=== PATIENT | male | born 1975 | race Caucasian/White ===

== ENCOUNTER 2019-01-25 14:38 | Outpatient (REF) | payer SELFPAY ==
[2019-01-25 20:32] LABS: COMMENT (LAB VIEW ONLY) 147.28 mg/dL; Microalb ug/mg Crea 3.1 ug/mg Cr
== END 2019-01-25 14:58 ==
LOC: NCHCN 14:38
PROVIDERS: PCP Internal Medicine; Visit Provider Physician Assistant
DX: E11.9 Type 2 diabetes mellitus without complications (principal)
CPT/HCPCS: 82043; 82570

== ENCOUNTER 2020-09-23 11:12 | Emergency (ER) | payer SELFPAY ==
[2020-09-23 11:19] VITALS: BP 154/86; PULSE 75; RESP 16; TEMP 37.4; O2SAT 97
--- NOTE | 2020-09-23 11:30 | DI.RAD_ITS ---
Exam(s) XR SHOULDER LT COMPLETE 2+V EXAM: XR SHOULDER LT COMPLETE 2+V CLINICAL HISTORY: Pain, limited Range of motion. TECHNIQUE: 2D digital imaging was performed. COMPARISON: CR LEFT SHOULDER COMPLETE from 08/20/2012 FINDINGS: There is no evidence of acute fracture nor dislocation of the glenohumeral joint. Benign bone island in the osseous glenoid is unchanged from 2013. There is no narrowing of the glenohumeral joint evid ent and no osteophytes. No calcifications in the subacromial space. There are degenerative changes in the acromioclavicular joint which appear to have somewhat progressed from the prior study, present ly including small downgoing osteophytes on both sides of this joint. There also degenerative subart icular cysts in the lateral aspect of the humeral head, more evident than previous. No evidence of H ill-Sachs deformity. No osseous Bankart lesion. No lytic osseous lesions identified. IMPRESSION: DATA REPOSITORY: RADIATION DOSE DELIVERED:
--- NOTE | 2020-09-23 11:32 | ED.GENADUL_ITS ---
Discharge Plan Disposition Patient Disposition: HOME Condition: Stable Discharge Details Clinical Impression: Arthritis of shoulder region, left, degenerative, Sprain of left shoulder Primary Care Provider: Vasquez Aldana ED Provider: Deysi Flynn Home Meds and New Rx's Prescriptions: No Action Olecranon Sleeve Qty: 1 RF: 0 ibuprofen 200 MG capsule 800 mg PO PRN PRNRF: 0 glyburide 5 mg Tablet 10 mg PO DAILY RF: 0 metformin 1,000 mg tablet 1,000 mg PO DAILY RF: 0 lovastatin 20 mg tablet 20 mg PO DAILY RF: 0 Discharge Instructions Instructions: Shoulder Sprain (ED), Arthritis (ED) Additional Instructions: Alternate ice and heat. Try massage and topical antiinflammatories such as Diclofenac topical cream. Please take Tylenol or Ibuprofen with food every 4-6 hours as needed for pain and swelling. Follow up with primary care provider in 3-5 days. Return to ED sooner if any worsening or concerns. Increase oral fluids. Referrals: Vasquez Aldana MD [Primary Care Provider] - Medical Decision Making 45-year-old male presents to the ER with chief complaint of left shoulder pain which began on Wednesday. Patient states that he was wrestling with his son and is unsure of the mechanism of injury. He reports taking Tylenol and ibuprofen at home with little to no relief. He reports increased swelling noted on Wednesday and abduction of the shoulder. No pain with palpation no obvious deformity distal CMS is intact. Full range of motion noted to the elbow. X-ray ordered. Differential diagnosis includes but not limited to fracture, sprain, tendinitis. EXAM: XR SHOULDER LT COMPLETE 2+V CLINICAL HISTORY: Pain, limited Range of motion. TECHNIQUE: 2D digital imaging was performed. COMPARISON: CR LEFT SHOULDER COMPLETE from 08/20/2012 FINDINGS: There is no evidence of acute fracture nor dislocation of the glenohumeral joint. Benign bone island in the osseous glenoid is unchanged from 2013. There is no narrowing of the glenohumeral joint evident and no osteophytes. No calcifications in the subacromial space. There are degenerative changes in the acromioclavicular joint which appear to have somewhat progressed from the prior study, presently including small downgoing osteophytes on both sides of this joint. There also degenerative subarticular cysts in the lateral aspect of the humeral head, more evident than previous. No evidence of Hill-Sachs deformity. No osseous Bankart lesion. No lytic osseous lesions identified. Discussed x-ray results with patient who verbalizes understanding. Discussed home care. This text was generated using [employer] system, please disregard any oddities of phrase or misspellings. HPI General Mode of arrival: ambulatory . Date/Time Provider Initiated Documentation: 09/23/20 11:15 . Limitations to Documentation: no limitations . Information obtained by: patient and RN notes reviewed . HPI Narrative: 45-year-old male presents to the ER with chief complaint of left shoulder pain which began on Wednesday. Patient states that he was wrestling with his son and is unsure of the mechanism of injury. He reports taking Tylenol and ibuprofen at home with little to no relief. He reports increased swelling noted on Wednesday and abduction of the shoulder. No pain with palpation no obvious deformity distal CMS is intact. Full range of motion noted to the elbow. Related Data Home Medications Medication Instructions Recorded Confirmed ibuprofen 800 mg PO PRN PRN 08/20/12 09/23/20 glyburide 10 mg PO DAILY 09/23/20 09/23/20 lovastatin 20 mg PO DAILY 09/23/20 09/23/20 metformin 1,000 mg PO DAILY 09/23/20 09/23/20 Allergies Allergy/AdvReac Type Severity Reaction Status Date / Time Penicillins AdvReac Severe Anaphylaxsi Unverified 09/23/20 11:22 s General Stated Complaint: Orthopedic DIAZ: 3 Review of Systems All systems reviewed & are unremarkable except as noted in HPI and below Musculoskeletal Musculoskeletal: Denies back pain, Denies deformity, Reports arthralgias (Left shoulder), Reports joint swelling, Reports limited range of motion and Denies numbness Neurologic Neurologic: Denies numbness [facility] Social History Smoking/Tobacco Use Status: Current every day Tobacco Type: cigarettes Smoking risk assessment performed?: Yes Alcohol Intake: current Alcohol Intake frequency: a few times a week Alcohol type: beer Drug use: Daily Substance use type: marijuana Do you feel safe at home: Yes Do you feel safe in your relationship?: Yes Exam Narrative Exam Narrative: Constitutional: Alert and oriented x3. Appears stated age. Normal body habitus. Head: Normocephalic, no trauma. Chest: RRR, Normal S1, S2, distal pulses intact. Resp: Lungs clear to auscultation bilaterally, no wheezes, rales, or rhonchi. Musculoskeletal: Normal gait, 5/5 strength to all four extremities. Decreased abduction of left shoulder. No obvious deformity, no pinpoint tenderness with palpation. Full range of motion noted to elbow distal CMS intact. Skin: No suspicious rashes or lesions. Capillary refill less than 2 sec. Course Vital Signs Vital signs: Vital Signs Temperature 37.4 C 09/23/20 11:19 Pulse 75 09/23/20 11:19 Respiratory Rate 16 09/23/20 11:19 Blood Pressure 154/86 H 09/23/20 11:19 Pulse Oximetry 97 09/23/20 11:19 Temperature 37.4 C 09/23/20 11:19 Temperature Source Oral 09/23/20 11:19 Pulse 75 09/23/20 11:19 Respiratory Rate 16 09/23/20 11:19 Respiratory Effort Non-Labored 09/23/20 11:24 Blood Pressure 154/86 H 09/23/20 11:19 Blood Pressure Position Sitting 09/23/20 11:19 Pulse Oximetry 97 09/23/20 11:19 Oxygen Delivery Method Room Air 09/23/20 11:19 Oxygen Flow Rate 0 09/23/20 11:19 Pain Level 10 09/23/20 11:24
== END 2020-09-23 12:40 | disposition home or self-care (01) ==
PROVIDERS: Emergency Provider Registered Nurse Emergency; PCP Internal Medicine
DX: S43.492A Other sprain of left shoulder joint, initial encounter (principal); M19.012 Primary osteoarthritis, left shoulder; X50.9XXA Other and unspecified overexertion or strenuous movements or postures, initial encounter; Y93.83 Activity, rough housing and horseplay
CPT/HCPCS: 99283; 73030

== ENCOUNTER 2020-11-10 10:33 | Emergency (ER) | payer SELFPAY ==
--- NOTE | 2020-11-10 11:00 | DI.CT_ITS ---
Exam(s) CT ABDOMEN PELVIS W EXAM: CT ABDOMEN PELVIS W CLINICAL HISTORY: right flank pain TECHNIQUE: Imaging Protocol: Axial computed tomography images with coronal and sagittal reformatted images were created and reviewed CONTRAST MATERIAL: Intravenous: Omnipaque 350 Contrast volume:100 mL Oral: No COMPARISON: No exams were available for comparison FINDINGS: ABDOMEN: Lung Bases: Normal where visualized. Liver: Normal density. No measurable mass. Portal, Superior Mesenteric, and Splenic Veins: Unremarkable. Gallbladder and Biliary Tract: No radiodense calculus or dilation. Pancreas: Normal density, no abnormal calcifications or inflammatory process. Spleen: Normal. Adrenals: No masses seen. Kidneys: Normal size, contour and axis. No radiodense stones or obstructive uropathy. No masses seen. Abdominal Aorta: Abdominal portion non-dilated. Atherosclerosis. Bowel: No obstruction or bowel wall thickening. Appendix is unremarkable. Peritoneal Cavity: No ascites, collection or mesenteric inflammatory response. No free air. Lymph Nodes: Within normal limits. Bones: Within normal limits for the patient's age. 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 Soft Tissues: Unremarkable. PELVIS: Bladder: The urinary bladder is incompletely distended. No gross abnormality is identified. Reproductive Organs: Unremarkable as visualized. Lymph Nodes: Within normal limits. Bones: Within normal limits for the patient's age. IMPRESSION: No acute abdominal or pelvic process. RADIATION DOSE DELIVERED: 1,134.21mGy.cm Total DLP DATA REPOSITORY: All CT scans at this facility are submitted to the National Radiology Data Registry (NRDR) Dose Index Registry (DIR) with the [employer] (ACR). RADIATION OPTIMIZATION: All CT scans at this facility use at least one of these dose optimization te chniques: automated exposure control; mA and/or kV adjustment per patient size (includes targeted exa ms where dose is matched to clinical indication); or iterative reconstruction.
[2020-11-10 11:01] VITALS: BP 140/86; PULSE 66; RESP 16; TEMP 36.2; O2SAT 97
--- NOTE | 2020-11-10 11:02 | DI.RAD_ITS ---
Exam(s) XR CHEST 2V PA LATERAL EXAM: XR CHEST 2V PA LATERAL CLINICAL HISTORY: wheezing, r flank pain TECHNIQUE: 2D digital imaging was performed of the chest. Two images were obtained. PA and lateral views were obtained. COMPARISON: No exams were available for comparison FINDINGS: MEDIASTINUM: Normal. HEART: Normal. PULMONARY VASCULATURE: Normal. LUNGS: Clear. PLEURAL SPACE: No pleural effusion or pneumothorax. BONE:Within normal limits for the patient's age. OTHER FINDINGS:Normal. IMPRESSION: No acute pulmonary findings. DATA REPOSITORY: RADIATION DOSE DELIVERED:
[2020-11-10 11:27] LABS: Abs Immature Grans 0.03 10^3/uL (0.0-0.06); Absolute Basophil Count 0.02 10^3/uL (0.0-0.2); Absolute Eosinophil Count 0.06 10^3/uL (0.0-0.7); Absolute Lymphocyte Count 2.13 10^3/uL (1.2-3.4); Absolute Monocyte Count 0.58 10^3/uL (0.1-0.8); Absolute Neutrophil Count 6.44 10^3/uL (1.2-6.7); Basophils % 0.2; Eosinophils % 0.6; HCT 45.3 % (40.0-50.0); HGB 15.2 g/dL (13.5-17.5); Immature Grans % 0.3; MCH 30.2 pg (27.0-33.0); MCHC 33.6 % (32.0-36.0); MCV 89.9 fL (80-95); MPV 9.1 fL (8.0-11.0); Monocytes % 6.3; Neutrophils % 69.6; Nucleated RBC 0 %; Platelet Count 243 10^3/uL (130-400); RBC 5.04 10^6/uL (4.36-5.78); RDW 12.5 % (11.8-14.1); RDW-SD 41.4 fL; WBC 9.26 10^3/uL (4.4-10.8)
[2020-11-10 11:40] LABS: ALT 38 U/L (16-63); AST 15 U/L (15-37); Albumin 4.4 g/dL (3.4-5.0); Alkaline Phosphatase 50 U/L (46-116); BUN 15 mg/dL (7-18); Bilirubin, Total 0.7 mg/dL (0.2-1.0); CREATININE 1.1 mg/dL (0.70-1.30); Calcium 9.2 mg/dL (8.5-10.1); Chloride 102 mmol/L (98-107); Glucose 202 mg/dL (74-106); Lipase 67 U/L (73-393); Potassium 4.6 mmol/L (3.5-5.1); Sodium 136 mmol/L (136-145); Total Protein 7.7 g/dL (6.4-8.2)
[2020-11-10 11:47] VITALS: RESP 18
[2020-11-10] MEDS: Omnipaque 350 MG/ML 100 ML BTL IV (12:43)
[2020-11-10] MEDS: Normal Saline Flush 10 ML SYR IVP (12:44)
[2020-11-10] MEDS: Normal Saline - Diluent 50 ML VIAL IV (12:44)
--- NOTE | 2020-11-10 12:57 | ED.GENADUL_ITS ---
Discharge Plan Disposition Patient Disposition: HOME Condition: Stable Discharge Details Clinical Impression: Back pain Primary Care Provider: Norah Perez ED Provider: Ariane Pritchett Home Meds and New Rx's Prescriptions: New orphenadrine citrate 100 mg tablet extended release 100 mg PO BID Qty: 10 RF: 0 Continued ibuprofen 200 MG capsule 800 mg PO PRN PRNRF: 0 glyburide 5 mg Tablet 10 mg PO DAILY RF: 0 metformin 1,000 mg tablet 1,000 mg PO DAILY RF: 0 lovastatin 20 mg tablet 20 mg PO DAILY RF: 0 Discharge Instructions Instructions: Back Pain (ED) Additional Instructions: No lifting greater than 5 pounds, light stretching recommended Ibuprofen 600 mg every diverticular Tylenol 650 mg every 4 hours Take a muscle relaxant but do not drive for 8 hours after taking this medication You may continue with warm compresses, what ever feels better 2 hours after application Follow-up with primary care physician, you may need physical therapy should you have persistent symptoms Referrals: Norah Perez [Primary Care Provider] - Medical Decision Making CT scan does not show evidence of acute abnormality, diagnostic blood work aside from mild hyperglycemia, 230 does not show acute abnormality Patient resting comfortably in room, discharged home on Norflex for muscle relaxation Given low threshold to return with new or worsening complaints Clinically low suspicion for infectious etiology of patient's complaint No evidence of diabetic ketoacidosis Recheck in 24 to 48 hours recommended Ibuprofen and Tylenol for pain control recommended Suspect musculoskeletal back pain given negative CT imaging Medical Records Medical records reviewed: Yes I reviewed the patient's medical records. Lab Data Lab results reviewed: Yes I reviewed the patient's lab results. HPI General Mode of arrival: ambulatory . Date/Time Provider Initiated Documentation: 11/10/20 11:00 . Limitations to Documentation: no limitations . Information obtained by: patient . HPI Narrative: This 45-year-old gentleman presents with right flank pain for the past 2 days. Denies history of similar. Denies any exacerbating factors. States that ibuprofen mildly improved with pain Denies any trauma. Denies any strength or sensation changes to extremities. States his blood sugars have been within normal limits. Is a noninsulin- dependent diabetic. Denies any hematuria or dysuria. Denies any changes in urination. Denies any change in stool. Denies any chest pain or shortness of breath although does report a cold few weeks ago. Does smoke tobacco. Denies known asthma or COPD history. Denies known exposure to sick contacts. Denies history of IV drug abuse, paresthesias thickening, changes in bowel or bladder, denies fever or chills. Related Data Home Medications Medication Instructions Recorded Confirmed ibuprofen 800 mg PO PRN PRN 08/20/12 11/10/20 glyburide 10 mg PO DAILY 09/23/20 11/10/20 lovastatin 20 mg PO DAILY 09/23/20 11/10/20 metformin 1,000 mg PO DAILY 09/23/20 11/10/20 orphenadrine citrate 100 mg PO BID #10 tab 11/10/20 Previous Rx's Medication Instructions Recorded orphenadrine citrate 100 mg PO BID #10 tab 11/10/20 Allergies Allergy/AdvReac Type Severity Reaction Status Date / Time Penicillins AdvReac Severe Anaphylaxsi Unverified 11/10/20 11:04 s General Stated Complaint: GenMedical DIAZ: 3 Review of Systems All systems reviewed & are unremarkable except as noted in HPI and below PFSH Social History Smoking/Tobacco Use Status: Current every day Tobacco Type: cigarettes Smoking risk assessment performed?: Yes Alcohol Intake: current Alcohol Intake frequency: a few times a week Alcohol type: beer Drug use: Daily Substance use type: marijuana Do you feel safe at home: Yes Do you feel safe in your relationship?: Yes Exam Const General: cooperative, comfortable and no acute distress Orientation: alert and oriented x3 Eyes Pupils: PERRL Resp Effort & Inspection: normal respiratory effort Auscultation: clear to auscultation bilaterally Cardio Rate: regular rate Rhythm: regular rhythm GI Other: No abdominal bruit or pulsatile mass, right flank tenderness, paraspinal tenderness negative straight leg raise Back/Spine/Pelvis Back/spine/pelvis image: 1. Tenderness with palpation, no rashes or lesions Skin General skin exam: no rashes or lesions noted Neuro General: patient alert and patient oriented x3 Other: DTRs intact bilateral upper and lower extremities, strength intact bilateral extremities, ambulatory with steady gait Extrem Other: Distal pulses intact Course Vital Signs Vital signs: Vital Signs Temperature 36.2 C L 11/10/20 11:01 Pulse 66 11/10/20 11:01 Respiratory Rate 16 11/10/20 11:01 Blood Pressure 140/86 11/10/20 11:01 Pulse Oximetry 97 11/10/20 11:01 Temperature 36.2 C L 11/10/20 11:01 Temperature Source Skin 11/10/20 11:01 Pulse 66 11/10/20 11:01 Respiratory Rate 18 11/10/20 11:47 Respiratory Effort Non-Labored 11/10/20 11:47 Respiratory Depth Normal 11/10/20 11:47 Respiratory Pattern Normal 11/10/20 11:47 Blood Pressure 140/86 11/10/20 11:01 Blood Pressure Position Sitting 11/10/20 11:01 Pulse Oximetry 97 11/10/20 11:01 Oxygen Delivery Method Room Air 11/10/20 11:01 Oxygen Flow Rate 0 11/10/20 11:01 Pain Level 8 11/10/20 11:48 Lab/Test Results Lab/Test Results: Laboratory Tests Range/Units 11/10/20 11/10/20 11:19 11:19 WBC (4.4-10.8) 10^3/uL 9.26 RBC (4.36-5.78) 10^6/uL 5.04 Hgb (13.5-17.5) g/dL 15.2 Hct (40.0-50.0) % 45.3 MCV (80-95) fL 89.9 MCH (27.0-33.0) pg 30.2 MCHC (32.0-36.0) % 33.6 RDW (11.8-14.1) % 12.5 Plt Count (130-400) 10^3/uL 243 MPV (8.0-11.0) fL 9.1 Immature Gran % 0.3 Neutrophils % 69.6 Lymphocytes % 23.0 Monocytes % 6.3 Eosinophils % 0.6 Basophils % 0.2 Nucleated RBC % % 0 Absolute Neutrophils (1.2-6.7) 10^3/uL 6.44 Absolute Lymphocytes (1.2-3.4) 10^3/uL 2.13 Absolute Monocytes (0.1-0.8) 10^3/uL 0.58 Absolute Eosinophils (0.0-0.7) 10^3/uL 0.06 Absolute Basophils (0.0-0.2) 10^3/uL 0.02 Sodium (136-145) mmol/L 136 Potassium (3.5-5.1) mmol/L 4.6 Chloride (98-107) mmol/L 102 Carbon Dioxide (21.0-32.0) mmol/L 27.0 Anion Gap (3-11) mmol/L 7.0 BUN (7-18) mg/dL 15 Creatinine (0.70-1.30) mg/dL 1.1 Estimated GFR/1.73 m2 (mL/min/1.73m2) >= 60.00 Glucose (74-106) mg/dL 202 H Calcium (8.5-10.1) mg/dL 9.2 Total Bilirubin (0.2-1.0) mg/dL 0.7 AST (15-37) U/L 15 ALT (16-63) U/L 38 Alkaline Phosphatase (46-116) U/L 50 Total Protein (6.4-8.2) g/dL 7.7 Albumin (3.4-5.0) g/dL 4.4 Lipase (73-393) U/L 67 PAWSS Have you Been Recently Intoxicated or Drunk Within the Last 30 days?: Yes Have you Ever Experienced Previous Episodes of Alcohol Withdrawal?: No Have you ever Experienced Withdrawal Seizures?: No Have you ever Experienced Delirium Tremens(DT)s?: No Have you ever undergone Alcohol Rehabilitation Treatment (i.e, inpt ot outpatient treatment programs)?: No Have you ever Experienced Blackouts?: No Have you ever Combined Alcohol with other Downers within the last 90 days?: No Have you ever Combined Alcohol with any other Substance of Abuse during the last 90 days?: No Positive Blood Alcohol level on Presentation? [PCS.BAL]: No Evidence of Increased Autonomic Activity (i.e. HR>120, tremor, sweating, agitation, nausea)?: No Result: 1
--- NOTE | 2020-11-10 13:04 | DI.VRAD_ITS ---
PROCEDURE INFORMATION: Exam: CT Abdomen And Pelvis With Contrast Exam date and time: 11/10/2020 11:04 AM Age: 45 years old Clinical indication: Other: Right flank pain TECHNIQUE: Imaging protocol: Computed tomography of the abdomen and pelvis with contrast. Contrast material: OMNIPAQUE 350; Contrast volume: 100 ml; Contrast route: INTRAVENOUS (IV); COMPARISON: US SCROTUM AND CONTENTS 26/05/2018 10:03 FINDINGS: A in Lungs: Visualized lung bases are clear. Liver: Normal. No mass or intrahepatic biliary ductal dilatation. Gallbladder and bile ducts: Normal. No calcified stones. No ductal dilation. Pancreas: Normal. No mass or ductal dilation. Spleen: Normal. No splenomegaly. Adrenal glands: Normal. No mass. Kidneys and ureters: Normal. No hydronephrosis, calculus, cyst or mass. Stomach and bowel: Unremarkable. No significant dilatation or obstruction. No mucosal thickening or visible mass. Appendix: No evidence of appendicitis. Intraperitoneal space: Unremarkable. No free air. No significant fluid collection. Vasculature: Unremarkable. No abdominal aortic aneurysm or significant atherosclerosis. Lymph nodes: No enlarged retroperitoneal or mesenteric lymph nodes. Urinary bladder: No mass or wall thickening. Reproductive: Unremarkable as visualized. Bones/joints: Unremarkable. No acute fracture. No lytic lesion. Soft tissues: Unremarkable. IMPRESSION: No acute abnomality in the abdomen or pelvis. Dictated and Authenticated by: Albino Fernando MD. Ordering:RENU Thakkar MD
--- NOTE | 2020-11-10 13:05 | DI.VRAD_ITS ---
PROCEDURE INFORMATION: Exam: XR Chest Exam date and time: 11/10/2020 12:11 PM Age: 45 years old Clinical indication: Other: RT flank pain; Additional info: Wheezing, R flank pain TECHNIQUE: Imaging protocol: XR of the chest. Views: 2 views. COMPARISON: CT ABDOMEN PELVIS W 04/17/2020 12:27 FINDINGS: Scan quality: Exam is technically satisfactory. Lungs: Lungs are clear with no infiltrate or nodule. Pleural spaces: Unremarkable. No pleural effusion. No pneumothorax. Heart/Mediastinum: Cardiomediastinal silhouette is normal. Vasculature: Pulmonary vessels are non-engorged. Bones/joints: Unremarkable. IMPRESSION: No active cardiopulmonary disease. Dictated and Authenticated by: Albino Fernando MD. Ordering:RENU Thakkar MD
[2020-11-10 13:56] VITALS: BP 149/94; PULSE 62; RESP 18; TEMP 36.6; O2SAT 97
[2020-11-10 14:03] LABS: Bilirubin Negative (Negative); Blood Negative (Negative); Clarity Clear (Clear); Glucose 250 mg/dL (Negative); Ketones Negative (Negative); Leukocyte Esterase Negative (Negative); Nitrite Negative (Negative); Urobilinogen 0.2 EU/dL (Up TO 0.2); pH 5.5 (5-8)
== END 2020-11-10 13:56 | disposition home or self-care (01) ==
PROVIDERS: Emergency Provider Physician Assistant; PCP Physician Assistant
DX: M54.50 Low back pain, unspecified (principal)
CPT/HCPCS: 36415; 80053; 83690; 99285; 71046; 74177; 81003; 85025; 99284; J3490

== ENCOUNTER 2022-12-03 21:28 | Outpatient (REF) | payer OTHER, SELFPAY ==
[2022-12-03 20:41] LABS: ALT 30 U/L (16-63); AST 17 U/L (15-37); Albumin 4.5 g/dL (3.4-5.0); Alkaline Phosphatase 48 U/L (46-116); Bilirubin, Total 0.7 mg/dL (0.2-1.0); Calculated LDL 89 mg/dL (<100); Cholesterol 182 mg/dL (<200); HDL Cholesterol 78 mg/dL (40-60); Total Protein 7.4 g/dL (6.4-8.2); Triglyceride 79 mg/dL (<150)
[2022-12-03 20:50] LABS: Bilirubin, Direct 0.1 mg/dL (0.0-0.2)
--- OUTSIDE RECORDS SUMMARY | 2022-12-03 21:32 | XMS_ITS | Continuity of Care Document ---
Author Name Unknown Organization [facility] Address [address] [place] [address] Care Team Providers [employer] Supervisor Name Role Phone Norah Perez Primary Care Physician [phone] Encounter [facility] Date(s): 09/05/22 - 09/05/22 [facility] [address] [place] [address] Discharge Disposition: Home or Self Care Attending Physician: Teresa Quinones [employer]ICULTURAL SCIENCES PROFESSOR Admitting Physician: Teresa Quinones NP Referring Physician: Teresa Quinones AGRICULTURAL SCIENCES PROFESSOR Results Laboratory List Name Date Renal Function Panel 09/05/22 Most recent to oldest [Reference Range]: 1 BUN [7-18 mg/dL] 13 mg/dL (09/05/22 10:08 AM) Glucose Level [74-106 mg/dL] 225 mg/dL *HI* (09/05/22 10:08 AM) Potassium Level [3.5-5.1 mmol/L] 4.0 mmo l/L (09/05/22 10:08 AM) Sodium Level [136-145 mmol/L] 134 mmol/L 1 *LOW* (09/05/22 10:08 AM) Calcium Level [8.5-10.1 mg/dL] 8.8 mg/dL (09/05/22 10:08 AM) Phosphorus Level [2.6-4.7 mg/dL] 2.8 mg/ dL (09/05/22 10:08 AM) Albumin Level [3.4-5.0 g/dL] 3.9 g/dL (09/05/22 10:08 AM) CO2 [21-32 mmol/L] 27 mmol/L (09/05/22 10:08 AM) eGFR Non-AA [>=60] 98 (09/05/22 10:08 AM) eGFR AA [>=60] 98 (09/05/22 10:08 AM) Chloride Level [98-107 mmol/L] 101 mmol/ L (09/05/22 10:08 AM) Creatinine Level [0.70-1.30 mg/dL] 0.96 mg/dL (09/05/22 10:08 AM) 1Result Comment: Repeated to confirm Patient Care team information Care Team Personnel Name: Norah Perez PA-C Position: PowerChart View Only Member Role: Informed Provider Address: Address: [facility] [address], [place] [address] Care Team Related Persons Name: JIMENA YANES
== END 2022-12-03 21:29 | disposition home or self-care (01) ==
LOC: NCHCN 21:28
PROVIDERS: PCP Physician Assistant; Visit Provider Physician Assistant
DX: E11.9 Type 2 diabetes mellitus without complications (principal); E78.5 Hyperlipidemia, unspecified
CPT/HCPCS: 80061; 80076

== ENCOUNTER 2022-12-16 12:51 | Emergency (ER) | payer OTHER, SELFPAY ==
--- NOTE | 2022-12-16 13:00 | DI.CT_ITS ---
Exam(s) CT HEAD WO EXAM: CT HEAD WO CLINICAL HISTORY: headache, blurred vision. TECHNIQUE: Imaging Protocol: Axial computed tomography images with coronal and sagittal reformatted images were created and reviewed COMPARISON: No exams were available for comparison FINDINGS: Ventricles and Extra axial spaces: Normal in size and morphology for the patient's age. Hemorrhage: None. Cerebral parenchyma: Normal. Midline shift: None. Brainstem/Cerebellum: Normal. Pituitary gland is grossly unremarkable. Calvarium: Normal. Visualized Paranasal sinuses/Mastoids: Clear. Soft Tissues: Unremarkable. IMPRESSION: 1. No acute intracranial process. 2. Findings were discussed with the emergency department at 2:37 p.m. on 12/16/2022. RADIATION DOSE DELIVERED: Total DLP DATA REPOSITORY: All CT scans at this facility are submitted to the National Radiology Data Registry (NRDR) Dose Index Registry (DIR) with the [employer] (ACR). RADIATION OPTIMIZATION: All CT scans at this facility use at least one of these dose optimization te chniques: automated exposure control; mA and/or kV adjustment per patient size (includes targeted exa ms where dose is matched to clinical indication); or iterative reconstruction.
[2022-12-16 13:01] VITALS: BP 151/106; PULSE 64; RESP 18; TEMP 37.1; O2SAT 99
--- NOTE | 2022-12-16 13:03 | ED.GENADUL_ITS ---
Discharge Plan Disposition Patient Disposition: Home Condition: Stable Discharge Details Clinical Impression: Headache Primary Care Provider: Norah Perez ED Provider: Joe Madera Home Meds and New Rx's Prescriptions: Continued ibuprofen 200 MG capsule 800 mg PO PRN PRN metformin 1,000 mg tablet 1,000 mg PO DAILY Patient Comments: TAKE 1 TABLET BY MOUTH TWICE DAILY orphenadrine citrate 100 mg tablet extended release 100 mg PO BID Qty: 10 0RF glipizide 5 mg tablet extended release 24hr 5 mg PO ONCE Patient Comments: TAKE ONE TABLET BY MOUTH EVERY DAY atorvastatin 20 mg tablet 20 mg PO ONCE Patient Comments: TAKE ONE TABLET BY MOUTH IN THE EVENING omeprazole 20 mg capsule,delayed release(DR/EC) 20 mg PO ONCE Patient Comments: TAKE ONE CAPSULE BY MOUTH EVERY MORNING ON AN EMPTY STOMACH, TAKE 30 MINUTES BEFORE EATING Discharge Instructions Instructions: DASH Eating Plan (ED), Hypertension (ED), General Headache (ED), Chronic Post Traumatic Headache (ED) Additional Instructions: You were seen in the emergency department for your continued headache after a concussive like injury [address] of your head shows no intracranial bleeding or other abnormality, your labs show no signs of endorgan damage from your hypertension. Prior to starting medicine for hypertension you should try lifestyle changes like the Dash eating plan in the provided patient education materials. Talk with your regular doctor about hypertension as a possible cause for your mild blurred vision. Your neuro exam was normal today. When you have a headache please take 1000 mg of Tylenol, 400 mg of ibuprofen, drink lots of water, talk with your primary care provider about seeing a neurologist for continued headache postconcussion or starting prescribed migraine medications. Please return to the emergency department for any coordination difficulty, significant worsening visual changes or severe sudden onset headaches are completely uncontrolled high blood pressure. Referrals: Norah Perez [Primary Care Provider] - Medical Decision Making This dictation utilizes [id number] dictation software and may contain unedited grammatical errors. 47 y/o M presents to ED today with a chief complaint of nearly two months of headache around an area on the crown of his head that he bumped in a metal gurder in mid-October. States having floaters and blurred vision, noted hypertension in triage- does not take any HTN medications. Onset and characteristics include 2 months of intermittent headaches, seems to be worsening. Patient has relevant history of t2DM. Family and social history: noncontributory. Pertinent exam findings / vital signs include normal neuro exam without cerebellar signs, vision grossly normal, no visual field deficits, benign cardio pulmonary status. Differential / pathologies of concern include uncontrolled HTN, stable ICH (time/duration 2 months), post-concussive syndrome, migraine syndrome. Diagnostic studies of: -BMP, UA, CBC, CT Head w/o Contrast. -renal function WNL -UA no proteinuria -CBC benign -CT head negative for ICH Interventions of: -headache medicines, IVF. ED Course: Counseled the patient on possible postconcussive syndrome as well as possibility of mild symptoms from hypertension, recommend PCP follow-up, counseled on negative head CT and no signs of endorgan damage from hypertension. Counseled t he patient on adequate treatment of migraine syndrome at home.. Findings not consistent with ICH, Hypertensive Urgency/Emergency, Neuro Deficit- likely post-concussive syndrome vs migraine syndrome. Disposition of Headache. Assessment/Plan: Counseled the patient on possible migraine syndrome and treating with medications like Tylenol and ibuprofen and aggressive hydration, counseled him on talking to his primary care provider about his hypertension and starting a medicine like lisinopril if he is having consistently high readings and cutting his salt intake prior to starting Rx's. Counseled on low risk for intracranial bleeding 2 months after a minor concussive injury. Patient verbalized understanding of the plan and return to ED criteria and engaged in shared decision making. Medical Records Medical records reviewed: Yes I reviewed the patient's medical records. Imaging Data Radiologic Study: Imaging: CT Scan Radiologist's impression: EXAM: CT HEAD WO CLINICAL HISTORY: headache, blurred vision. TECHNIQUE: Imaging Protocol: Axial computed tomography images with coronal and sagittal reformatted images were created and reviewed COMPARISON: No exams were available for comparison FINDINGS: Ventricles and Extra axial spaces: Normal in size and morphology for the patient's age. Hemorrhage: None. Cerebral parenchyma: Normal. Midline shift: None. Brainstem/Cerebellum: Normal. Pituitary gland is grossly unremarkable. Calvarium: Normal. Visualized Paranasal sinuses/Mastoids: Clear. Soft Tissues: Unremarkable. IMPRESSION: 1. No acute intracranial process. 2. Findings were discussed with the emergency department at 2:37 p.m. on 12/16/2022. Lab Data Lab results reviewed: Yes I reviewed the patient's lab results. HPI General Date/Time Provider Initiated Documentation: 12/16/22 12:56 . HPI Narrative: 47 year-old male presents to ED today by POV/ambulating with a chief complaint of continued headache, floaters, blurred vision after a minor head injury bumping the crown of his head on a metal gurder with onset 10/21/22, had been seen by his PCP with normal neuro exam- did not get imaging done at incident time. Quality described as persistent headache pain not unilateral but around where he struck his head, no radiation to blindness, numbness/tingling, hemispheric weakness, slurred speech, coordination difficulty. Severity is described as moderate. Palliating factors include nothing specific attempted. Provoking factors include nothing specific. Events leading up to the incident/Associated Symptoms: Patient denies LOC at time of injury. Patient is hypertensive in triage 150/106. Patient not anticoagulated. Related Data Home Medications Medication Instructions Recorded Confirmed ibuprofen 200 mg capsule 800 mg PO PRN PRN 08/20/12 12/16/22 metformin 1,000 mg tablet 1,000 mg PO DAILY 09/23/20 12/16/22 orphenadrine citrate 100 mg 100 mg PO BID #10 tabs 11/10/20 12/16/22 tablet,extended release atorvastatin 20 mg tablet 20 mg PO ONCE 12/16/22 12/16/22 glipizide 5 mg tablet, extended 5 mg PO ONCE 12/16/22 12/16/22 release 24 hr omeprazole 20 mg capsule,delayed 20 mg PO ONCE 12/16/22 12/16/22 release Previous Rx's Medication Instructions Recorded orphenadrine citrate 100 mg 100 mg PO BID #10 tabs 11/10/20 tablet,extended release Allergies Allergy/AdvReac Type Severity Reaction Status Date / Time Penicillins AdvReac Severe Anaphylaxsi Unverified 12/16/22 13:09 s General DIAZ: 3 Review of Systems All systems reviewed & are unremarkable except as noted in HPI and below PFSH All Active Problems (Updated 12/16/22 @ 14:43 by FELTON Keyes) Headache (Acute) Back pain (Acute) Sprain of left shoulder (Acute) Arthritis of shoulder region, left, degenerative (Acute) Social History Smoking/Tobacco Use Status: Current every day Tobacco Type: cigarettes Smoking risk assessment performed?: Yes Alcohol Intake: current Alcohol Intake frequency: a few times a week Alcohol type: beer Drug use: Daily Substance use type: marijuana Do you feel safe at home: Yes Do you feel safe in your relationship?: Yes Exam Narrative Exam Narrative: GENERAL APPEARANCE: Well-nourished, non-toxic, awake and alert, atraumatic, no acute distress. SKIN: Warm, pink, dry, intact, without rashes/lesions/ulcerations. HEAD: Normocephalic, atraumatic, normal hair distribution for gender/age. EYES: Pupils PERRLA, EOMs intact without nystagmus, normal conjunctiva, no exudates on lids/lashes, vision grossly normal, visual hamm intact, test of skew negative ENT: Nares patent, no circumoral cyanosis, no facial swelling NECK: Supple, trachea midline, painless cervical ROM. LUNGS/CHEST: Non-labored respirations, normal A/P diameter, symmetrical expansion, no chest wall deformity HEART (CV/PV): Regular rate, R radial pulse 2+, no peripheral edema, no JVD. ABDOMEN: Soft, non-distended, no guarding. MSK: Normal ROM, no swelling/deformity to bilateral UEs or LEs, moving all extremities without weakness, no cyanosis, spine midline without tenderness, normal curvature. NEURO: Mental Status AAOx4 - alert to person, place, time, events No facial droop, no forehead involvement, no dysmetria with cerebellar testing in [id number], heel-huber, repetitive motion Motor: No focal weakness - strength 5/5 in bilateral UEs and LEs, proximal and distal, symmetric. Sensory: sensation intact to light touch globally. Gait normal: patient ambulated without ataxia into ED room, Romberg absent. PSYCH: euthymic, cooperative, pleasant, appropriate speech
[2022-12-16] MEDS: Normal Saline 1,000 ML 1000 ML IV (13:24)
[2022-12-16 13:28] LABS: Abs Immature Grans 0.03 10^3/uL (0.0-0.06); Absolute Basophil Count 0.03 10^3/uL (0.0-0.2); Absolute Eosinophil Count 0.06 10^3/uL (0.0-0.7); Absolute Lymphocyte Count 2.55 10^3/uL (1.2-3.4); Absolute Monocyte Count 0.65 10^3/uL (0.1-0.8); Absolute Neutrophil Count 5.72 10^3/uL (1.2-6.7); Basophils % 0.3; Eosinophils % 0.7; HGB 14.6 g/dL (13.5-17.5); Immature Grans % 0.3; Lymphocytes % 28.2; MCH 29.7 pg (27.0-33.0); MCHC 33.2 % (32.0-36.0); MCV 89 fL (80-95); Monocytes % 7.2; Neutrophils % 63.3; Platelet Count 238 10^3/uL (130-400); RBC 4.92 10^6/uL (4.36-5.78); RDW 12.7 % (11.8-14.1); RDW-SD 41.7 fL; WBC 9.04 10^3/uL (4.4-10.8)
[2022-12-16] MEDS: Acetaminophen 500 MG TAB 1000 MG PO (13:28)
[2022-12-16] MEDS: SUMAtriptan 25 MG TAB PO (13:28)
[2022-12-16] MEDS: Dexamethasone 10 MG/ML VIAL IVP (13:28)
[2022-12-16] MEDS: Ketorolac 15 MG/ML VIAL IVP (13:29)
[2022-12-16 13:37] LABS: Anion Gap 8.8 mmol/L (3-11); BUN 16 mg/dL (7-18); CO2 28.2 mmol/L (21.0-32.0); CREATININE 1.1 mg/dL (0.70-1.30); Calcium 9.6 mg/dL (8.5-10.1); Chloride 102 mmol/L (98-107); Estimated GFR 83.32 (mL/min/1.73m2); Glucose 138 mg/dL (74-106); Potassium 4.1 mmol/L (3.5-5.1); Sodium 139 mmol/L (136-145)
[2022-12-16 14:57] VITALS: BP 161/78; PULSE 53; O2SAT 98
[2022-12-16 15:05] LABS: Bilirubin Negative (Negative); Blood Negative (Negative); Clarity Clear (Clear); Glucose Negative (Negative); Ketones Trace mg/dL (Negative); Leukocyte Esterase Negative (Negative); Nitrite Negative (Negative); Specific Gravity >= 1.030 (1.005-1.025); Urobilinogen 0.2 mg/dL (Up to 0.2)
== END 2022-12-16 15:02 | disposition home or self-care (01) ==
PROVIDERS: Emergency Provider Physician Assistant; PCP Physician Assistant
DX: R51.9 Headache, unspecified (principal)
CPT/HCPCS: 80048; 96361; 96374; 96375; 99283; 70450; 81003; 85025; J1100; J1885

== ENCOUNTER 2023-03-05 11:30 | Outpatient (REF) | payer OTHER, SELFPAY ==
[2023-03-05 20:21] LABS: COMMENT (LAB VIEW ONLY) 96.09 mg/dL
== END 2023-03-05 11:31 | disposition home or self-care (01) ==
LOC: NCHCN 11:30
PROVIDERS: PCP Physician Assistant; Visit Provider Physician Assistant
DX: E11.9 Type 2 diabetes mellitus without complications (principal)
CPT/HCPCS: 82043; 82570

== ENCOUNTER 2023-04-08 07:29 | Day surgery (SDC) | payer OTHER, SELFPAY ==
--- NOTE | 2023-04-07 20:39 | W.PM.DSUDISC ---
Date of service: 04/08/23 Time of Service: 10:15 Discharge Plan Disposition Patient Disposition: Home Condition: Good Discharge Details Reason For Visit: screening colonoscopy Attending Provider: Dennis Mike Primary Care Provider: Norah Perez Home Meds and New Rx's Prescriptions: Continued lisinopril 10 mg tablet 10 mg PO DAILY metformin 1,000 mg tablet 1,000 mg PO BID sildenafil [Viagra] 100 mg tablet 100 mg PO DAILY PRN Rx Instructions: administer 30 minutes to 4 hours before activity aspirin [Adult Aspirin Regimen] 81 mg tablet,delayed release (DR/EC) 81 mg PO DAILY ibuprofen 200 MG capsule 800 mg PO PRN PRN glipizide 5 mg tablet extended release 24hr 5 mg PO ONCE Patient Comments: TAKE ONE TABLET BY MOUTH EVERY DAY atorvastatin 20 mg tablet 20 mg PO ONCE Patient Comments: TAKE ONE TABLET BY MOUTH IN THE EVENING omeprazole 20 mg capsule,delayed release(DR/EC) 20 mg PO ONCE Patient Comments: TAKE ONE CAPSULE BY MOUTH EVERY MORNING ON AN EMPTY STOMACH, TAKE 30 MINUTES BEFORE EATING Discontinued bisacodyl [Dulcolax (bisacodyl)] 5 mg tablet,delayed release (DR/EC) 5 mg PO ONCE Qty: 4 0RF Rx Instructions: Take per colonoscopy instructions provided by ordering providers office polyethylene glycol 3350 17 gram/dose powder 17 g PO ONCE Qty: 238 0RF Rx Instructions: Take per colonoscopy instructions provided by ordering providers office Discharge Instructions Instructions: Colorectal Polyps (GEN) Additional Instructions: Valente, we were able to complete your colonoscopy today without any issues. I found a total of 5 polyps, which I removed completely. All were small to medium in size, and there were no features that raise any concern to the naked eye. I will send all these over to the pathologist for their review. Once I have the description of the nature of the polyps, the office will be in touch regarding recommendations for your next colonoscopy. If you have any questions in the meantime, please do not hesitate to call at any point. 1. If tolerated, consume a soft, low fiber diet for 1-2 days. 2[address] Do not drive, drink alcohol, operate machinery, make critical decisions, or do activities that require coordination or balance for 24 hours. 3. Because air was put into your colon during the procedure, expelling air from your rectum (passing gas or farting) is normal. 4. You may not have a bowel movement for 1-3 days because of the colonoscopy prep. This is normal. 5. Go directly to the emergency room if you notice any of the following: Develop chills (warm to touch), or if you have a thermometer and your temperature is above 101 Difficulty breathing or difficultly swallowing Persistent vomiting Severe abdominal pain, other than gas cramps Severe chest pain Black, tarry stools Any bleeding ? exceeding one tablespoon 6. Call your physician if the site where your intravenous was started becomes red, swollen, painful, and warm to touch. 7. Your physician has reviewed your pre-procedure medications. Please continue to take those medications as previously ordered. You will be given specific information/education regarding any changes to your medications before leaving. Activity:: Activity as Tolerated Diet:: As Tolerated Discharge Orders Discharge Orders: Discharge Order (Routine); Ordered 04/07/23 Ordered By: Dennis Mike DS: Diagnosis Discharge Diagnosis (1) Screen for colon cancer: Status: Acute Asessment and Plan: Follow-up on polypectomy results
--- NOTE | 2023-04-07 20:40 | COLE_ITS ---
Date of service: 04/08/23 Time of Service: 10:17 Colonoscopy Report Date of procedure: 04/08/23 Pre-op diagnosis general: screening colonoscopy Post-op diagnosis procedure note: other (Colon polyps) Procedure: Colonoscopy with polypectomy Surgeon: Dennis Mike Anesthesia Type: General:No Airway Estimated blood loss (mL): 5 Pathology: other (0.25 cm polyp in the rectum, 0.25 cm polyp at 20 cm x 2, 0.25 cm polyp at 23 cm, 0.25 cm polyp at 25 cm) Complications: None Disposition: same day Indications: Valente is a 47 year old man who needs his first screening colonoscopy Prep: Miralax/Dulcolax Procedure Start Time: 09:50 Procedure End Time: 10:08 Retraction Time: 957 Findings: 0.25 cm polyp in the rectum, 0.25 cm polyp at 20 cm x 2, 0.25 cm polyp at 23 cm, 0.25 cm polyp at 25 cm Procedure Description: After the induction of monitored anesthetic care, and with the patient in left lateral decubitus position, I began by performing an external anorectal exam.? Perineum and skin were normal, as was the anal verge.? There was no evidence of external hemorrhoids.? Next, I performed a digital rectal exam.? I did not appreciate any abnormal findings.? Next, I advanced a colonoscope into the rectal vault.? I performed retroflexion.? This was normal.? Using insufflation, I then advanced the colonoscope beyond the rectal folds and into the sigmoid colon before advancing towards the cecum.? Within the rectum, there was a 0.25 cm mostly flat polyp. This was removed with cold forceps without any issue.? The scope was noted to be in the cecum by identification of the ileocecal valve and appendiceal orifice.? I then began withdrawing the colonoscope using repeated irrigation as necessary for full evaluation of the colonic mucosa. At 25 cm from the anus I encountered another 0.25 cm flat polyp. This was removed with cold forceps. Similarly, I found flat polyps at 23 cm, and 2 more flat polyps at 20 cm from the anal verge. All of these were less than 0.25 cm. All were removed with cold forceps. once the scope was withdrawn to the level of the rectum, great care was taken to examine portions of the rectal folds.? Finally, the scope was withdrawn and the patient was brought to the same-day surgery recovery unit as the anesthetic wore off. ?The findings and instructions were shared with the patient prior to discharge. [place] Bowel Prep [place] Bowel Prep Right Colon: 3 Left Colon: 3 Transverse Colon: 3 Total Score: 9
[2023-04-08 07:59] VITALS: BP 130/80; PULSE 70; RESP 16; TEMP 36.7; O2SAT 95
[2023-04-08] MEDS: Lactated Ringers 1,000 ML 80 ML IV (08:23)
--- NOTE | 2023-04-08 08:33 | ANES.PREOP_ITS ---
General Info Date of Service Date Performed: 04/08/23 Height: 5 ft 8 in Weight: 104.5 kg Body Mass Index (BMI): 35.0 Surgical Procedure: Operation Date: 04/08/23 09:05 Proposed Procedure Side Surgeon taylor Mike MD Meds Allergies and Home Medications Allergies Allergy/AdvReac Type Severity Reaction Status Date / Time Penicillins AdvReac Severe Anaphylaxsi Verified 04/08/23 07:57 s Home Medication Medication Instructions Recorded ibuprofen 200 mg capsule 800 mg PO PRN PRN 08/20/12 atorvastatin 20 mg tablet 20 mg PO ONCE 12/16/22 glipizide 5 mg tablet, extended 5 mg PO ONCE 12/16/22 release 24 hr omeprazole 20 mg capsule,delayed 20 mg PO ONCE 12/16/22 release aspirin 81 mg tablet,delayed 81 mg PO DAILY 03/03/23 release (Adult Aspirin Regimen) metformin 1,000 mg tablet 1,000 mg PO BID 03/03/23 sildenafil 100 mg tablet (Viagra) 100 mg PO DAILY PRN 03/03/23 lisinopril 10 mg tablet 10 mg PO DAILY 03/12/23 Current Visit Medications: Current Medications Generic Name Dose Route Start Last Admin Trade Name Freq PRN Reason Stop Dose Admin Hyoscyamine Sulfate 0.125 mg 04/07/23 20:41 Hyoscyamine 0.125 Mg Sl/Oral/Chew SL 05/07/23 20:40 DIRECTED PRN Ringer's Solution 1,000 mls @ 80 mls/hr 04/08/23 06:00 04/08/23 08:23 IV 05/07/23 23:59 80 mls/hr INFUSION MUMTAZ Administration IV Miscellaneous Supplies 1 each 04/08/23 06:00 Iv Access IV 05/07/23 23:59 DIRECTED MUMTAZ Ondansetron HCl 4 mg 04/07/23 20:41 Ondansetron 4 Mg/2 Ml Vial IVP 05/07/23 20:40 Q4H PRN PRN Nausea / Vomiting Sodium Chloride 0 ml 04/08/23 06:00 Normal Saline Flush 10 Ml Syr IV 05/07/23 23:59 PRN PRN Sodium Chloride 0 ml 04/08/23 06:00 Normal Saline 10 Ml Vial IJ 05/07/23 23:59 DIRECTED PRN Sterile Water 0 ml 04/08/23 06:00 Water,Injection,Sterile 10 Ml Vial IJ 05/07/23 23:59 DIRECTED PRN PFS Active Problems Active Problems: Problem Status Onset Code Screen for colon cancer Z12.11 Tobacco dependence F17.200 Calcaneal spur M77.30 Diabetes mellitus, type II E11.9 Obesity E66.9 Hyperlipidemia E78.5 Erectile dysfunction N52.9 Back pain M54.9 Sprain of left shoulder S43.402A Arthritis of shoulder region, left, degenerative M19.012 Medical History Medical History (Updated 04/07/23 @ 20:39 by Dennis Mike MD) COVID-19 Tobacco Smoking/Tobacco Use Status: Current every day Tobacco Type: cigarettes Alcohol Alcohol Intake: current Alcohol intake frequency: 3 or more drinks per day Alcohol type: beer Substance Use Substance use: Daily Substance use type: marijuana Details: Smoke and Edibles Vital Signs and Lab Results Vital Signs Most Recent Vital Signs in EMR: Most Recent Vital Signs Temp Pulse Resp BP Pulse Ox 36.7 C 70 16 130/80 95 04/08/23 07:59 04/08/23 07:59 04/08/23 07:59 04/08/23 07:59 04/08/23 07:59 Point of Care Results Point of Care Results: Finger Stick Blood Glucose 115 04/08/23 08:27 Lab Results Blood Type / Crossmatch: 2 No Data to Display Complete Blood Count: 2 No Data to Display Complete Metabolic Panel: 2 No Data to Display Liver Function Panel: 2 No Data to Display Coagulation Panel: 2 No Data to Display Cardiac Panel: 2 No Data to Display Arterial Blood Gas: 2 No Data to Display Venous Blood Gas: 2 No Data to Display Pancreas Panel: 2 No Data to Display Thyroid Panel: 2 No Data to Display Infectious Disease: 2 No Data to Display Blood Cultures: 2 No Data to Display Toxicology Panel: 2 No Data to Display Anesthesia Assessment and Plan Anesthesia History Personal History: No History of Anesthesia Complications Family History: No Family History of Anesthesia Complications Exercise Tolerance Exercise Tolerance: Metabolic Equivalents>4 Pertinent Negatives Pertinent Negatives: No Symptoms of GERD, No Major Cardiovascular Symptoms or Complaints, No Major Pulmonary Symptoms or Complaints and No History of CVA/TIA Cardiac & Pulmonary Exam Cardiac Exam: Normal S1/S2 Heart Sounds Pulmonary Exam: Clear Bilateral Breath Sounds Implantable Cardiac Device Does patient have a Pacemaker or an ICD?: No Airway Exam Known Difficult Airway: No Mallampati Class: 2 Mouth Opening: Normal (> 3cm) Thyromental Distance: Greater than 3 cm Neck Range of Motion: Full ROM Neck Circumference: Normal Teeth Condition: Normal Dentition Tooth Numberin 1. Missing ASA Classification ASA Score: ASA 2 Emergency Case?: No NPO Status NPO Status: NPO Clears >2 hours, Solids >8 hours Anesthesia Plan Resuscitation Status: Full Code Anesthesia Technique: General Anesthesia Airway Planned: Natural Airway Monitors Used: Standard Monitors
[2023-04-08 08:51] VITALS: BMI 35.0
--- NOTE | 2023-04-08 09:52 | BOWEL_PTH ---
PATIENT: Valente Duenas LOC: [facility] U#:[id number] AGE/SX: 47/M ROOM: RE04/08/[address]: Dennis Mike MD : 1975 BED: DIS: 04/08/2023 SPEC #: [id number] RECD: 04/08/23 13:05 STATUS: JEANETH RE #: [id number] VLADIMIR: 04/08/23 09:[address]: Dennis Mike DEPT: Surgical Specimen RECD BY: Ariane Harrison ENTERED: 04/08/23 13:06 SP TYPE: Bowel OTHR DR: Norah Perez Tissues: 1 - BIOPSY BOWEL 2 - BIOPSY BOWEL 3 - BIOPSY BOWEL 4 - BIOPSY BOWEL Procedures: GROSS AND MICRO LEVEL 4 Comments: [id number]
[2023-04-08 10:20] VITALS: BP 142/84; PULSE 73; RESP 16; TEMP 36.1; O2SAT 96
--- NOTE | 2023-04-08 10:43 | W.ANESPOSTOP ---
Postoperative Evaluation Date, Time and Location Date Performed: 04/08/23 Time Performed: 10:28 Patient Location: Day Surgery Unit Vital Signs Most Recent Imported Vital Signs: Most Recent Vital Signs Temp Pulse Resp BP Pulse Ox 36.1 C L 73 16 142/84 H 96 04/08/23 10:20 04/08/23 10:20 04/08/23 10:20 04/08/23 10:20 04/08/23 10:20 Pain Score Most Recent Pain Score: Most Recent Pain Score Pain Level 0 04/08/23 10:20 Assessment Mental Status: Awake (Alert & Oriented to Patient Baseline) Airway and Respiratory Function: Patent airway with normal (patient baseline) respiratory exam Cardiovascular Function: Hemodynamically Stable Hydration Status: Adequately Hydrated Nausea & Vomiting: No Nausea or Vomiting Pain: Pt. Denies Any Pain Peripheral Nerve Block: Patient did not receive a nerve block
[2023-04-08 10:50] VITALS: BP 150/79; PULSE 78; RESP 16; TEMP 36.1; O2SAT 95
== END 2023-04-08 10:55 | disposition home or self-care (01) ==
LOC: SUR 07:29
PROVIDERS: PCP Physician Assistant; Visit Provider Surgery
PROC: 0DJD8ZZ Inspection of Lower Intestinal Tract, Via Natural or Artificial Opening Endoscopic (ICD-10-PCS; CPT 45378; principal; 2023-04-08 09:00)
DX: Z12.11 Encounter for screening for malignant neoplasm of colon (principal); K63.5 Polyp of colon; K62.1 Rectal polyp
CPT/HCPCS: 45380; 88305; J2704

== ENCOUNTER 2023-08-20 15:22 | Outpatient (REF) | payer OTHER, SELFPAY ==
--- OUTSIDE RECORDS SUMMARY | 2023-08-20 15:25 | XMS_ITS | Encounter Summary ---
Author Organization [facility] Address [address] [place] [address] Care Team Providers Care Machine Set Up Operator Name Role Phone Unknown, Provider Primary Care Provider Encounter Details Date Type Department Care Team (Late st Contact Info) Description 04/08/2023 Lab Requisition [facility] Pathology & Laboratory Medicine - [facility] [address], [place] [phone] Dennis Mike MD [address] [place] [address], [address] [place], [place] [id number] Encounter for screening for malignant neoplasm of colon Social History Tobacco Use Types Packs/Day Years Used Date Smoking Tobacco: Never Assessed Sex and Gender Information Value Date Recorded Sex Assigned at Not on file Gender Identity Not on file Sexual Orientation Not on file documented as of this encounter Plan of Treatment Not on file documented as of this encounter Procedures Procedure Name Priority Date/Time Associated Diagnosis Comments SURGICAL PATHOLOGY Today 04/08/2023 9:52 EST Encounter for screening for malignant neoplasm of colon documented in this encounter Results * SURGICAL PATHOLOGY (04/08/2023 9:52 EST) Note to Patient The following pathology results have been interpreted by your pathologist and may be available to you before your health provider has had the opportunity to review them. Please allow time for your provider to receive these results and explore management options, if applicable. 04/12/2023 14:28 [facility] Final Diagnosis A. RECTUM, POLYP, BIOPSY: - Hyperplastic polyp fragments. B. COLON, 20 CM, POLYP X 2, BIOPSY: - Hyperplastic polyp fragments. C. COLON, 25 CM, POLYP, BIOPSY: - Hyperplastic polyp. D. COLON, 23 CM, POLYP, BIOPSY: - Hyperplastic polyp. 04/12/2023 14:28 [facility] Attestation By the signature below, the attending physician certifies that they have 1) personally conducted a gross and/or microscopic examination of the described specimen(s), and/or personally interpreted the results of laboratory testing of the described specimen(s), and 2) personally rendered or confirmed the above diagnosis. 04/12/2023 14:28 [facility] at 1428 Clinical History Screening; polyps 04/12/2023 14:28 [facility] Gross Description A. Received in formalin labelled with proper patient identification (initials S, B) and rectal polyp are 3 lemon-pink tissues ranging in size from 0.2 x 0.2 x 0.1 cm up to 0.4 x 0.2 x 0.1 cm. Submitted intact in A1. B. Received in formalin labelled with proper patient identification (initials S, B) and polyp at 20 cm x 2 are 2 lemon-pink tissues measuring 0.2 x 0.2 x 0.1 cm and 0.3 x 0.2 x 0.1 cm. Submitted intact in B1. C. Received in formalin labelled with proper patient identification (initials S, B) and polyp at 25 cm is a lemon-pink tissue measuring 0.4 x 0.3 x 0.2 cm. Submitted intact in C1. D. Received in formalin labelled with proper patient identification (initials S, B) and polyp at 23 cm is a lemon-pink tissue measuring 0.4 x 0.3 x 0.1 cm. Submitted intact in D1. FELTON PRITCHETT(ASCP) 04/08/2023 18:18 04/12/2023 14:28 [facility] Performing Lab [facility] 04/12/2023 14:28 [facility] Scanned Images 04/12/2023 14:28 [facility] Tissue COLON STRUCTURE / Unknown 04/08/2023 9:52 EST 04/08/2023 17:13 EST Tissue specimen (specimen) COLON STRUCTURE / Unknown 04/08/2023 9:52 EST 04/08/2023 17:13 EST Tissue specimen (specimen) COLON STRUCTURE / Unknown 04/08/2023 9:52 EST 04/08/2023 17:13 EST Tissue specimen (specimen) COLON STRUCTURE / Unknown 04/08/2023 9:52 EST 04/08/2023 17:13 EST Dennis Mike MD PATHOLOGY ORDERABLES Performing Organization Address City/State/[facility] Co de Phone Number [facility] [address] [place] [phone] documented in this encounter Visit Diagnoses Diagnosis Encounter for screening for malignant neoplasm of colon Special screening for malignant neoplasms, colon documented in this encounter Care Teams Machine Set Up Operator Relationship Specialty Start Date End Date Unknown, Provider, PCP - General 03/11/23 documented as of this encounter
--- OUTSIDE RECORDS SUMMARY | 2023-08-20 15:25 | XMS_ITS | Clinical Summary ---
Author Organization [facility] Address [address] [place] [address] Care Team Providers Care Voicer Name Role Phone Unknown, Provider Primary Care Provider Social History Tobacco Use Types Packs/Day Years Used Date Smoking Tobacco: Never Assessed Sex and Gender Information Value Date Recorded Sex Assigned at Not on file Gender Identity Not on file Sexual Orientation Not on file Plan of Treatment Health Maintenance Due Date Last Done Comments Hepatitis C Screen 1975 Hepatitis B Vaccine (1 of 3 - 19+ 3-dose series) 05/02 COVID-19 Vaccine ( season) 2022 Care Teams Voicer Relationship Specialty Start Date End Date Unknown, Provider, PCP - General 03/11/23
--- OUTSIDE RECORDS SUMMARY | 2023-08-20 15:25 | XMS_ITS | Referral Summary ---
Author Organization [facility] Address [address] [place] [address] Care Team Providers Care Consulting Psychiatrist Name Role Phone Unknown, Provider Primary Care Provider [phone] Social History Tobacco Use Types Packs/Day Years Used Date Smoking Tobacco: Never Assessed Sex and Gender Information Value Date Recorded Sex Assigned at Not on file Gender Identity Not on file Sexual Orientation Not on file Plan of Treatment Not on file Care Teams Consulting Psychiatrist Relationship Specialty Start Date End Date Unknown, Provider, PCP - General 03/11/23
[2023-08-20 19:05] LABS: ALT 36 U/L (16-63); AST 18 U/L (15-37); Albumin 4.4 g/dL (3.4-5.0); Alkaline Phosphatase 54 U/L (46-116); Anion Gap 4.4 mmol/L (3-11); BUN 18 mg/dL (7-18); Bilirubin, Total 0.47 mg/dL (0.2-1.0); CO2 31.6 mmol/L (21.0-32.0); Calcium 9.6 mg/dL (8.5-10.1); Chloride 104 mmol/L (98-107); Estimated GFR 92.84 (mL/min/1.73m2); Glucose 174 mg/dL (74-106); Potassium 5.2 mmol/L (3.5-5.1); Sodium 140 mmol/L (136-145); Total Protein 7.6 g/dL (6.4-8.2)
[2023-08-20 20:19] LABS: Calculated LDL 79 mg/dL (<100); Cholesterol 155 mg/dL (<200); HDL Cholesterol 67 mg/dL (40-60); Triglyceride 47 mg/dL (<150)
[2023-08-22 09:50] LABS: HIV-1/2 Ag & Ab Screen Negative (Negative)
[2023-08-23 11:14] LABS: Hepatitis C Ab w Rflx HCV PCR Negative (Negative)
== END 2023-08-20 15:23 | disposition home or self-care (01) ==
LOC: NCHCN 15:22
PROVIDERS: PCP Physician Assistant; Visit Provider Physician Assistant
DX: E11.9 Type 2 diabetes mellitus without complications (principal); Z11.4 Encounter for screening for human immunodeficiency virus [HIV]; Z11.59 Encounter for screening for other viral diseases
CPT/HCPCS: 80053; 80061; 86803; 87389

== ENCOUNTER 2023-10-22 21:16 | Emergency (ER) | payer OTHER, SELFPAY ==
[2023-10-22 21:19] VITALS: BP 152/84; PULSE 102; RESP 22; TEMP 36.6; O2SAT 93
--- OUTSIDE RECORDS SUMMARY | 2023-10-22 21:28 | XMS_ITS | Clinical Summary ---
Author Organization [facility] Address [address] [place] [address] Care Team Providers Care Hospice Admitting Clerk Name Role Phone Unknown, Provider Primary Care Provider Encounters Date Type Department Care Team Description 08/21/2023 Lab Requisition [facility] Pathology & Laboratory [facility] [address] [place] [address] Outr Resulting Lab, Provider 08/21/2023 Lab Requisition [facility] Pathology & Laboratory [address] [address] Outr Resulting Lab, Provider from Last 3 Months Social History Tobacco Use Types Packs/Day Years Used Date Smoking Tobacco: Never Assessed Sex and Gender Information Value Date Recorded Sex Assigned at Not on file Gender Identity Not on file Sexual Orientation Not on file Plan of Treatment Health Maintenance Due Date Last Done Comments Hepatitis B Vaccine (1 of 3 - 19+ 3-dose series) 05/02 COVID-19 Vaccine (2022- season) 2022 Hepatitis C Screen Completed 08/20/2023 Procedures Procedure Name Priority Date/Time Associated Diagnosis Comments HIV 1/2 ANTIGEN AND ANTIBODY, 4TH GENERATION Routine 08/20/2023 9:45 EDT HEPATITIS C AB W REFLEX TO HCV RNA BY PCR Routine 08/20/2023 9:45 EDT from Last 3 Months Results * HEPATITIS C AB W REFLEX TO HCV RNA BY PCR (08/20/2023 9:45 EDT) Hep C Antibody Negative Negative 08/23/2023 11:09 EDT [facility] Blood VENOUS BLOOD / Unknown 08/20/2023 9:45 EDT 08/21/2023 21:51 EDT Provider Outr Resulting Lab CHEMISTRY & BLOOD GAS ORDERABLES Performing Organization Address City/[facility]/ZIP Co de Phone Number [facility] [address], [place] [phone] * HIV 1/2 ANTIGEN AND ANTIBODY, 4TH GENERATION (08/20/2023 9:45 EDT) [facility] Signature HIV 1 and 2 Antibody/p24 Antigen, 4th Generation Negative Negative 08/22/2023 9:45 EDT [facility] Comment:If acute HIV-1 infec tion is suspected in a high risk patient, submit plasma specimen for HIV-1 RNA quantitation test. Blood VENOUS BLOOD / Unknown 08/20/2023 9:45 EDT 08/21/2023 21:51 EDT Narrative [facility] - 08/22/2023 9:45 EDT Fourth Generation assay performed on the Siemens [employer] XPT. Provider Outr Resulting Lab IMMUNOLOGY A ND SEROLOGY ORDERABLES [facility] [address], [place] [phone] from Last 3 Months Care Teams Hospice Admitting Clerk Relationship Specialty Start Date End Date Unknown, Provider, PCP - General 03/11/23
--- OUTSIDE RECORDS SUMMARY | 2023-10-22 21:28 | XMS_ITS | Encounter Summary ---
Author Organization [facility] Address [address] [place] [address] Care Team Providers Care Bias Machine Operator Helper Name Role Phone Unknown, Provider Primary Care Provider Encounter Details Date Type Department Care Team (Late st Contact Info) Description 04/08/2023 Lab Requisition [facility] Pathology & Laboratory Medicine - [facility] [address] [place], [place] [phone] Dennis Mike MD [address] [place] [address], [address] [place], [place] [phone] Encounter for screening for malignant neoplasm of [...] explore management options, if applicable. 04/12/2023 14:28 [facility] Final Diagnosis A. RECTUM, POLYP, BIOPSY: - Hyperplastic polyp fragments. B. COLON, 20 CM, POLYP X 2, BIOPSY: - Hyperplastic polyp fragments. C. COLON, 25 CM, POLYP, BIOPSY: - Hyperplastic polyp. D. COLON, 23 CM, POLYP, BIOPSY: - Hyperplastic polyp. 04/12/2023 14:28 [facility] Attestation By the signature below, the attending physician certifies that they have 1) personally conducted a gross and/or microscopic examination of the described specimen(s), and/or personally interpreted the results of laboratory testing of the described specimen(s), and 2) personally rendered or confirmed the above diagnosis. 04/12/2023 14:28 [facility] at 1428 Clinical History Screening; polyps 04/12/2023 14:28 [facility] Gross Description A. [...] D1. FELTON PRITCHETT(ASCP) 04/08/2023 18:18 04/12/2023 14:28 [facility] Performing Lab [facility] 04/12/2023 14:28 [facility] Scanned Images 04/12/2023 14:28 [facility] Tissue COLON STRUCTURE / Unknown 04/08/2023 9:52 EST 04/08/2023 17:13 EST Tissue specimen (specimen) COLON STRUCTURE / Unknown 04/08/2023 9:52 EST 04/08/2023 17:13 EST Tissue specimen (specimen) COLON STRUCTURE / Unknown 04/08/2023 9:52 EST 04/08/2023 17:13 EST Tissue specimen (specimen) COLON STRUCTURE / Unknown 04/08/2023 9:52 EST 04/08/2023 17:13 EST Dennis Mike MD PATHOLOGY ORDERABLES Performing Organization Address City/State[facility] Co de Phone Number [facility] [address] [place] [phone] documented in this encounter Visit Diagnoses Diagnosis Encounter for screening for malignant neoplasm of colon Special screening for malignant neoplasms, colon documented in this encounter Care Teams Bias Machine Operator Helper Relationship Specialty Start Date End Date Unknown, Provider, PCP - General 03/11/23 documented as of this encounter
--- OUTSIDE RECORDS SUMMARY | 2023-10-22 21:28 | XMS_ITS | Referral Summary ---
Author Organization [facility] Address [address] [place] [address] Care Team Providers Care Carpentry Instructor Name Role Phone Unknown, Provider Primary Care Provider Encounters Date Type Department Care Team Description 08/21/2023 Lab Requisition [facility] Pathology & Laboratory [address] [address] Outr Resulting Lab, Provider 08/21/2023 Lab Requisition [facility] Pathology & Laboratory [address] [address] Outr Resulting Lab, Provider from Last 3 Months Social History Tobacco Use Types Packs/Day Years Used Date Smoking Tobacco: Never Assessed Sex and Gender Information Value Date Recorded Sex Assigned at Not on file Gender Identity Not on file Sexual Orientation Not on file Plan of Treatment Not on file Procedures Procedure Name Priority Date/Time Associated Diagnosis Comments HIV 1/2 ANTIGEN AND ANTIBODY, 4TH GENERATION Routine 08/20/2023 9:45 EDT HEPATITIS C AB W REFLEX TO HCV RNA BY PCR Routine 08/20/2023 9:45 EDT from Last 3 Months Results * HEPATITIS C AB W REFLEX TO HCV RNA BY PCR (08/20/2023 9:45 EDT) Hep C Antibody Negative Negative 08/23/2023 11:09 EDT [facility] Blood VENOUS BLOOD / Unknown 08/20/2023 9:45 EDT 08/21/2023 21:51 EDT Provider Outr Resulting Lab CHEMISTRY & BLOOD GAS ORDERABLES [facility] [address] [place] [address] * HIV 1/2 ANTIGEN AND ANTIBODY, 4TH GENERATION (08/20/2023 9:45 EDT) HIV 1 and 2 Antibody/p24 Antigen, 4th Generation Negative Negative 08/22/2023 9:45 EDT [facility] Comment:If acute HIV-1 infec tion is suspected in a high risk patient, submit plasma specimen for HIV-1 RNA quantitation test. Blood VENOUS BLOOD / Unknown 08/20/2023 9:45 EDT 08/21/2023 21:51 EDT Narrative [facility] - 08/22/2023 9:45 EDT Fourth Generation assay performed on the [employer] XPT. Provider Outr Resulting Lab IMMUNOLOGY A ND SEROLOGY ORDERABLES [facility] [address] [place] [address] from Last 3 Months Valente Duenas Personal/Family Self 1975 [employer] (Home) [address] [place] [address] Valente Duenas Personal/Family Self 1975 [employer] (Home) [address] [place] [address] Valente Duenas Personal/Family Self 1975 [employer] (Home[place] [address] [place] [address] SkagitValente borges Personal/Family Self 1975 [employer] (Home) [address] [place] [address] HenriqueValente Personal/Family Self 1975 [employer] (Home) [address] [place] [address] Henrique Valente Personal/Family Self 1975 [employer] (Home) [address] [place] [address] Henrique Valente Personal/Family Self 1975 [employer] (Home) [address] [place] [address] Care Teams Carpentry Instructor Relationship Specialty Start Date End Date Unknown, Provider, PCP - General 03/11/23
--- OUTSIDE RECORDS SUMMARY | 2023-10-22 21:28 | XMS_ITS | Encounter Summary ---
Author Organization [facility] Address [address] [place] [address] Care Team Providers Care Ironworker Helper Shop Name Role Phone Unknown, Provider Primary Care Provider [phone] Encounter Details Date Type Department Care Team (Late st Contact Info) Description 08/21/2023 Lab Requisition [facility] Pathology & Laboratory Medicine - [facility] [address] [place], [place] [phone] Outr Resulting Lab, Provider Social History Tobacco Use Types Packs/Day Years Used Date Smoking Tobacco: Never Assessed Sex and Gender Information Value Date Recorded Sex Assigned at Not on file Gender Identity Not on file Sexual Orientation Not on file documented as of this encounter Plan of Treatment Not on file documented as of this encounter Procedures Procedure Name Priority Date/Time Associated Diagnosis Comments HEPATITIS C AB W REFLEX TO HCV RNA BY PCR Routine 08/20/2023 9:45 EDT documented in this encounter Results * HEPATITIS C AB W REFLEX TO HCV RNA BY PCR (08/20/2023 9:45 EDT) Hep C Antibody Negative Negative 08/23/2023 11:09 EDT [facility] Blood VENOUS BLOOD / Unknown 08/20/2023 9:45 EDT 08/21/2023 21:51 EDT Provider Outr Resulting Lab CHEMISTRY & BLOOD GAS ORDERABLES [facility] [address] [place], [place] [phone] documented in this encounter Visit Diagnoses Not on filedocumented in this encounter Care Teams Ironworker Helper Shop Relationship Specialty Start Date End Date Unknown, Provider, PCP - General 03/11/23 documented as of this encounter
--- OUTSIDE RECORDS SUMMARY | 2023-10-22 21:28 | XMS_ITS | Encounter Summary ---
Author Organization [facility] Address [address] [place] [address] Care Team Providers Care Shellfish Sorter Name Role Phone Unknown, Provider Primary Care Provider Encounter Details Date Type Department Care Team (Late st Contact Info) Description 08/21/2023 Lab Requisition [facility] Pathology & Laboratory Medicine - [address] [address] Outr Resulting Lab, Provider Social History Tobacco [...] ANTIBODY, 4TH GENERATION Routine 08/20/2023 9:45 EDT documented in this encounter Results * HIV 1/2 ANTIGEN AND ANTIBODY, 4TH GENERATION (08/20/2023 9:45 EDT) HIV 1 and 2 Antibody/p24 Antigen, 4th Generation Negative Negative 08/22/2023 9:45 EDT [facility] Comment:If acute HIV-1 infec tion is suspected in a high risk patient, submit plasma specimen for HIV-1 RNA quantitation test. Blood VENOUS BLOOD / Unknown 08/20/2023 9:45 EDT 08/21/2023 21:51 EDT Narrative [facility] - 08/22/2023 9:45 EDT Fourth Generation assay performed on the Siemens [employer] XPT. Provider Outr Resulting Lab IMMUNOLOGY A ND SEROLOGY ORDERABLES [facility] [address] [place] [address] documented in this encounter Visit Diagnoses Not on filedocumented in this encounter Care Teams Shellfish Sorter Relationship Specialty Start Date End Date Unknown, Provider, PCP - General 03/11/23 documented as of this encounter
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
[2023-10-22] MEDS: Lidocaine/Epinephri/Tetracaine Topical Gel 3 ML TP (22:41)
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
--- NOTE | 2023-10-25 12:21 | NUR.NOTE ---
Accessed Pt chart to print of the discharge summary for the Pt, his was picking up the paperwork. Nursing Note:
== END 2023-10-22 23:15 | disposition left against medical advice (07) ==
PROVIDERS: Emergency Provider Physician Assistant; PCP Physician Assistant
DX: R51.9 Headache, unspecified (principal); S01.412A Laceration without foreign body of left cheek and temporomandibular area, initial encounter; E11.9 Type 2 diabetes mellitus without complications; E78.5 Hyperlipidemia, unspecified; F17.210 Nicotine dependence, cigarettes, uncomplicated; Z79.82 Long term (current) use of aspirin; Z79.84 Long term (current) use of oral hypoglycemic drugs; Y00.XXXA Assault by blunt object, initial encounter; Y93.89 Activity, other specified; Y92.89 Other specified places as the place of occurrence of the external cause; Z53.29 Procedure and treatment not carried out because of patient's decision for other reasons
CPT/HCPCS: 12011; 36415; 99284; 70450; 70486; 99283

== ENCOUNTER 2024-08-30 18:59 | Outpatient (REF) | payer OTHER, SELFPAY ==
[2024-08-30 21:10] LABS: ALT 40 U/L (16-63); AST 20 U/L (15-37); Albumin 4.5 g/dL (3.4-5.0); Alkaline Phosphatase 56 U/L (46-116); Anion Gap 8.9 mmol/L (3-11); BUN 19 mg/dL (7-18); Bilirubin, Total 0.3 mg/dL (0.2-1.0); CO2 27.1 mmol/L (21.0-32.0); Calcium 10.0 mg/dL (8.5-10.1); Chloride 105 mmol/L (98-107); Estimated GFR 104.70 (mL/min/1.73m2); Glucose 113 mg/dL (74-106); LDL CHOLESTEROL 72 mg/dL (<100); Potassium 4.1 mmol/L (3.5-5.1); Sodium 141 mmol/L (136-145); Total Protein 7.6 g/dL (6.4-8.2)
== END 2024-08-30 19:00 | disposition home or self-care (01) ==
LOC: NCHCN 18:59
PROVIDERS: PCP Physician Assistant; Visit Provider Physician Assistant
DX: E11.9 Type 2 diabetes mellitus without complications (principal)
CPT/HCPCS: 80053; 83721

== ENCOUNTER 2025-01-24 09:53 | Emergency (ER) | payer OTHER, SELFPAY ==
[2025-01-24 10:00] VITALS: BP 154/77; PULSE 84; RESP 16; TEMP 36.6; O2SAT 98
--- NOTE | 2025-01-24 10:45 | DI.CT_ITS ---
Exam(s) CT HEAD WO EXAM: CT HEAD WO CLINICAL HISTORY: HI 2 weeks ago, persistent discomfort occipital. TECHNIQUE: Imaging Protocol: Axial computed tomography images with coronal and sagittal reformatted images were created and reviewed COMPARISON: CT CT HEAD FACIAL WO from 10/22/2023 FINDINGS: Ventricles and Extra axial spaces: Normal in size and morphology for the patient's age. Hemorrhage: None. Cerebral parenchyma: No evidence of acute infarct or mass. Midline shift: None. Brainstem/Cerebellum: Normal. Bones: No skull or facial fractures. Visualized Paranasal sinuses:Clear. Mastoids: Clear. Soft Tissues: Unremarkable. ORBITS: Unremarkable. PITUITARY: Not enlarged. IMPRESSION: No acute intracranial process. RADIATION DOSE DELIVERED: 974.74mGy.cm Total DLP DATA REPOSITORY: All CT scans at this facility are submitted to the National Radiology Data Registry (NRDR) Dose Index Registry (DIR) with the [employer] (A[employer]). RADIATION OPTIMIZATION: All CT scans at this facility use at least one of these dose optimization techniques: automated exposure control; mA and/or kV adjustment per patient size (includes targeted exams where dose is matched to clinical indication); or iterative reconstruction.
[2025-01-24] MEDS: ACETAMINOPHEN 500 MG/50 ML BAG 200 MG IVPB (11:28)
[2025-01-24] MEDS: Metoclopramide 10 MG/2 ML VIAL IVP (11:30)
[2025-01-24] MEDS: Normal Saline 500 ML IV (11:30)
[2025-01-24 11:42] LABS: Abs Immature Grans 0.03 10^3/uL (0.0-0.06); HCT 47.4 % (40.0-50.0); HGB 15.8 g/dL (13.5-17.5); Immature Grans % 0.3 %; MCH 29.9 pg (27.0-33.0); MCHC 33.3 % (32.0-36.0); MCV 90 fL (80-95); MPV 9.4 fL (8.0-11.0); Platelet Count 221 10^3/uL (130-400); RBC 5.28 10^6/uL (4.36-5.78); RDW 12.5 % (11.8-14.1); RDW-SD 41.4 fL; WBC 8.83 10^3/uL (4.4-10.8)
[2025-01-24 12:07] LABS: ALT 28 U/L (10-49); AST 18 U/L (<34); Albumin 4.8 g/dL (3.2-5.0); Alkaline Phosphatase 49 U/L (46-116); Anion Gap 9 mmol/L (3-11); BUN 15 mg/dL (9-23); Bilirubin, Total 0.7 mg/dL (0.2-1.2); CO2 25.0 mmol/L (20.0-31.0); Calcium 9.5 mg/dL (8.3-10.6); Chloride 106 mmol/L (98-107); Glucose 198 mg/dL (74-106); Potassium 4.3 mmol/L (3.5-5.1); Sodium 140 mmol/L (136-145); Total Protein 7.5 g/dL (5.7-8.2)
[2025-01-24] MEDS: Ketorolac 15 MG/ML VIAL 7.5 MG IVP (12:13)
[2025-01-24 12:47] VITALS: BP 149/67; PULSE 64; RESP 20; TEMP 36.8; O2SAT 96
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
== END 2025-01-24 13:35 | disposition home or self-care (01) ==
PROVIDERS: Emergency Provider Physician Assistant; PCP Physician Assistant
DX: W01.198A Fall on same level from slipping, tripping and stumbling with subsequent striking against other object, initial encounter; S06.0X0A Concussion without loss of consciousness, initial encounter
CPT/HCPCS: 99284 ×2; 96374; 96375; 80053; 70450; 85025; J0131; J1885; J2765